=== PATIENT | female | born 1990 | race African-American/Black ===

== ENCOUNTER 2016-07-21 07:18 | Emergency (ER) | payer MEDICAID, OTHER ==
[~2016-07-21] VITALS: Ht 170.2 cm; Wt 113.4 kg
--- NOTE | 2016-07-21 07:44 | Emergency Room Report ---
History of Present Illness General Chief Complaint: Seizure Source: Patient Present Illness HPI 26 YOF BIBOSCAR with alleged seizure for ~1 min witnessed by mother. No trauma. Patient states now she is compliant with BID Depakote. Gets 2x seizures a year. She thinks she took depakote this morning. States she bit lip. Denies urinary/bowel incontinence. Feels ok now. Allergies: Coded Allergies: No Known Allergies (Unverified , 07/21/16) Patient History Past Medical History: seizures Past Surgical History: none Pertinent Family History: none Social History: Denies: alcohol use, drug use, smoking Last Menstrual Period: 07/20/2016 Now: No Immunizations: UTD Reviewed Nursing Documentation: PMH: Agreed, PSxH: Agreed Nursing Documentation-PMH Past Medical History: No History, Except For Hx Seizures: Yes Review of Systems All Other Systems: negative except mentioned in HPI Physical Exam Vital Signs Date Time Temp Pulse Resp B/P Pulse Ox O2 Delivery O2 Flow Rate FiO2 07/21/16 07:35 98.6 91 20 115/68 99 Room Air Sp02 EP Interpretation: reviewed, normal General Appearance: normal inspection, well appearing, no apparent distress, alert, GCS 15, non-toxic Head: normocephalic, atraumatic Eyes: bilateral eye EOMI, bilateral eye PERRL ENT: normal ENT inspection, hearing grossly normal, normal voice Neck: normal inspection, full range of motion, supple, no bony tend Respiratory: normal inspection, lungs clear, normal breath sounds, no respiratory distress, no retraction, no wheezing Cardiovascular #1: regular rate, rhythm, no edema Gastrointestinal: normal inspection, normal bowel sounds, non tender, soft, no guarding, no hernia Genitourinary: no CVA tenderness Musculoskeletal: normal inspection, back normal, normal range of motion, Molly' s Sign negative Neurologic: normal inspection, alert, oriented x3, responsive, fiberglass roller III-XII nml as tested, motor strength/tone normal, speech normal Psychiatric: normal inspection, judgement/insight normal, memory normal, mood/ affect normal, no suicidal/homicidal ideation, no delusions Skin: normal inspection, normal color, no rash Medical Decision Making Diagnostic Impression: Primary Impression: Seizure disorder ER Course 26 YO F with breakthru seizure. VSS. Afebrile. Not post ictal now. Atraumatic. No lac to tongue or lip or urinary incontinence Depakote level: 18, Low Was given additional dose of depakote here - patient not sure if she took this morning and is sub-therapeutic No other seizures in ED under observation Advised to followup with Neurologist DC home Last Vital Signs Date Time Temp Pulse Resp B/P Pulse Ox O2 Delivery O2 Flow Rate FiO2 07/21/16 07:35 98.6 91 20 115/68 99 Room Air Status: improved Disposition: HOME, SELF-CARE GRACE MARTÍNEZ M.D. Jul 21, 2016 07:44
[2016-07-21] MEDS ORDERED: DEPAKOTE250 MG PO (08:25)
[2016-07-21] MEDS ORDERED: Depakote 500mg tab ORAL ONE (08:45)
[2016-07-21 09:21] VITALS: BP 105/45
== END 2016-07-21 09:26 | disposition home or self-care (01) ==
LOC: EDBD 07:18 → EMR 07:48
DX: G40.909 Epilepsy, unspecified, not intractable, without status epilepticus (principal); Z79.899 Other long term (current) drug therapy
CPT/HCPCS: 36415; 80164; 99283